=== PATIENT | female | born 1940 | race Caucasian/White ===

== ENCOUNTER 2016-09-09 09:18 | Inpatient (IN) | payer OTHER, MEDICAID ==
[~2016-09-09] VITALS: Ht 157.5 cm; Wt 49.9 kg
[2016-09-09] MEDS ORDERED: LISI-646 PO (09:43)
[2016-09-09] MEDS ORDERED: ALPR0.5T PO (09:45)
[2016-09-09] MEDS ORDERED: HYDR200T36 PO (09:47)
[2016-09-09 10:26] LABS: Basophils # (auto) 0 uL; DEFINITIVE VIEW TRANSMISSION; Eosinophils # (auto) 0.1 uL; Eosinophils % (auto) 0.6 % (0.0-7.0); Hematocrit 46.8 % (36.0-46.0); Hemoglobin 14.9 g/dL (12.2-16.2); Lymphocytes # (auto) 0.9 uL; Mean Corpuscular Hemoglobin 28.6 pg (28.0-32.0); Mean Corpuscular Hgb Conc. 31.9 g/dL (32.0-36.0); Mean Corpuscular Volume 89.7 fL (80.0-100.0); Monocytes # (auto) 1.7 uL; Monocytes % (auto) 9.3 % (0.0-12.0); Neutrophils # (auto) 15.4 uL; Neutrophils % (auto) 85.1 % (37.0-80.0); Platelet Count (auto) 411 10^3/uL (140-450); Red Cell Distribution Width 15.4 % (11.6-16.0); White Blood Cell 18.1 10^3/uL (4.4-10.8)
[2016-09-09] MEDS ORDERED: ALBUTEROL SULF 2.5 MG/0.5ML(0.5%) NEB SOLN HHN STA (10:36)
[2016-09-09 10:45] LABS: Albumin 2.7 g/dL (3.4-5.0); BUN/Creatinine Ratio 24.1; Bilirubin, Total 0.5 mg/dL (0.2-1.0); Calcium 9.9 mg/dL (8.5-10.1); Potassium 3.8 mmol/L (3.5-5.1); Total Protein 6.4 g/dL (6.4-8.2)
[2016-09-09] MEDS ORDERED: methylPREDNISolone SOD SUCC 125 MG/2 ML VL IV ONE (10:45)
[2016-09-09] MEDS ORDERED: IPRATROPIUM BROM 0.5 MG/2.5ML INH SOL NEB ONE (10:45)
[2016-09-09] MEDS ORDERED: LEVOFLOXACIN 500MG 100 ML IV ONE (10:45)
[2016-09-09] MEDS ORDERED: SODIUM CHLORIDE 0.9% 500 ML IV ONE (10:45)
[2016-09-09 12:03] LABS: B-Type Natriuretic Peptide 279.84 pg/mL (0-100)
[2016-09-09 12:04] LABS: Temperature: 22.4 C (20.0-25.0)
[2016-09-09] MEDS ORDERED: NITROGLYCERIN 0.4 MG SL TAB SL PRN (12:30)
[2016-09-09] MEDS ORDERED: MORPHINE SULF INJ 2 MG/ML SYRINGE 1ML IV PRN (12:30)
[2016-09-09] MEDS ORDERED: IPRATROPIUM BROM 0.5 MG/2.5ML INH SOL NEB PRN (12:45)
[2016-09-09] MEDS ORDERED: ALBUTEROL SULF 2.5 MG/0.5ML(0.5%) NEB SOLN NEB PRN (12:45)
[2016-09-09] MEDS ORDERED: ACETAMINOPHEN 500 MG TAB PO PRN (12:45)
[2016-09-09] MEDS: ENOXAPARIN SOD 40 MG/0.4 ML SYRINGE SC SCH (13:31)
[2016-09-09] MEDS: cefTRIAXone 1GM/50ML D5W 50 ML IV SCH (13:31)
[2016-09-09] MEDS: AZITHROMYCIN 500MG/D5W 250ML 250 ML IV SCH (14:00)
[2016-09-09 17:00] VITALS: BP 136/75
[2016-09-09 20:52] VITALS: BP 136/75
[2016-09-09 22:00] VITALS: BP 116/67
[2016-09-10 05:00] VITALS: BP 146/79
[2016-09-10 09:09] VITALS: BP 147/93
[2016-09-10] MEDS ORDERED: AZITHROMYCIN 500MG/D5W 250ML 250 ML IV ONE (10:16)
[2016-09-10 10:31] LABS: Basophils # (auto) 0 uL; Basophils % (auto) 0.1 % (0.0-2.0); DEFINITIVE VIEW TRANSMISSION; Eosinophils # (auto) 0 uL; Hematocrit 44.2 % (36.0-46.0); Hemoglobin 14.2 g/dL (12.2-16.2); Lymphocytes # (auto) 0.7 uL; Lymphocytes % (auto) 3.7 % (10.0-50.0); Mean Corpuscular Hemoglobin 28.4 pg (28.0-32.0); Mean Corpuscular Hgb Conc. 32.1 g/dL (32.0-36.0); Mean Corpuscular Volume 88.6 fL (80.0-100.0); Mean Platelet Volume 8.2 fL (7.4-10.4); Monocytes # (auto) 1.7 uL; Monocytes % (auto) 9.5 % (0.0-12.0); Neutrophils # (auto) 15.7 uL; Neutrophils % (auto) 86.7 % (37.0-80.0); Platelet Count (auto) 446 10^3/uL (140-450); Red Cell Distribution Width 15.6 % (11.6-16.0); White Blood Cell 18.1 10^3/uL (4.4-10.8)
[2016-09-10] MEDS: ENOXAPARIN SOD 40 MG/0.4 ML SYRINGE SC SCH (10:35)
[2016-09-10] MEDS: AZITHROMYCIN 500MG/D5W 250ML 250 ML IV SCH (10:35)
[2016-09-10] MEDS: cefTRIAXone 1GM/50ML D5W 50 ML IV SCH (10:35)
[2016-09-10 10:44] LABS: Calcium 8.7 mg/dL (8.5-10.1); Potassium 3.8 mmol/L (3.5-5.1)
[2016-09-10 12:13] VITALS: BP 147/93
[2016-09-10 12:42] VITALS: BP 149/90
== END 2016-09-10 15:12 | disposition home or self-care (01) | DRG 190 ==
LOC: ER 09:30 → TELE 09:31 → TELE-E-ADS 14:21 → TELE-EAST 14:55
PROVIDERS: ADMIT Internal Medicine; ATTEND Internal Medicine
DX: J44.0 Chronic obstructive pulmonary disease with (acute) lower respiratory infection (principal); J96.01 Acute respiratory failure with hypoxia; J20.9 Acute bronchitis, unspecified; M06.9 Rheumatoid arthritis, unspecified; F41.9 Anxiety disorder, unspecified; I10 Essential (primary) hypertension; F17.210 Nicotine dependence, cigarettes, uncomplicated; M19.90 Unspecified osteoarthritis, unspecified site; M41.9 Scoliosis, unspecified; Z90.49 Acquired absence of other specified parts of digestive tract; Z90.710 Acquired absence of both cervix and uterus
CPT/HCPCS: 36415; 71010; 71020; 71250; 80048; 80053; 83605; 83735; 83880; 84484; 85025; 85049; 87040; 93005; 94644; 94761; 96361; 96365; 96375; J0696; J1956